=== PATIENT | female | born 1965 | race African-American/Black ===

== ENCOUNTER 2017-09-04 08:57 | Emergency (ER) | payer MEDICAID ==
[~2017-09-04] VITALS: Ht 157.5 cm; Wt 83.0 kg
[2017-09-04 09:02] VITALS: BP 145/96
[2017-09-04] MEDS ORDERED: HYDROcodone/APAP 5/325 TABLET PO ONE (09:30)
[2017-09-04] MEDS ORDERED: HYDROcodone/APAP 5/325 TABLET ONE (10:03)
== END 2017-09-04 10:11 | disposition home or self-care (01) ==
LOC: ED 10:00
DX: K02.9 Dental caries, unspecified (principal); F32.9 Major depressive disorder, single episode, unspecified
CPT/HCPCS: 99283